=== PATIENT | male | born 1965 | race American Indian/Alaskan Native ===

== ENCOUNTER 2019-10-13 11:09 | Day surgery (SDC) | payer OTHER ==
[~2019-10-13 11:09] MED LIST: CELECOXIB 200 MG CAP PO NR; GABAPENTIN 300 MG CAP PO NR; LACTATED RINGERS 1,000 ML IV SCH; MAGNESIUM OXIDE 400 MG TAB PO SCH; MIDAZOLAM 2 MG/2 ML INJ IV NR; ceFAZolin/STERILE WATER 2 GM/20 ML SYRINGE IV NR
[2019-10-13] MEDS ORDERED: HYDROmorphone 1 MG/1 ML INJ IV PRN ×2 (11:43→15:06)
--- NOTE | 2019-10-13 11:44 | Anesthesia Day of Surgery ---
Anesthesia Day of Surgery - Day of Surgery Patient Examined: Yes Patient H&P Reviewed: Yes Patient is NPO: Yes
--- NOTE | 2019-10-13 11:44 | Anesthesia Consultation ---
Anesthesia Consult and Med Hx Date of service: 10/13/19 - Airway Anesthetic Teeth Evaluation: Good ROM Head & Neck: Adequate Mental/Hyoid Distance: Adequate Mallampati Class: Class II Intubation Access Assessment: Probably Good - Pulmonary Exam CTA: Yes - Cardiac Exam Cardiac Exam: RRR - Pre-Operative Health Status ASA Pre-Surgery Classification: ASA2 Proposed Anesthetic Plan: General - Pulmonary Hx Smoking: No Hx Respiratory Symptoms: No Hx Sleep Apnea: Yes (somtimes uses CPAP) - Cardiovascular System Hx Hypertension: Yes Hx Heart Attack/AMI: No Hx Percutaneous Transluminal Coronary Angioplasty (PTCA): No Hx Cardia Arrhythmia: No - Central Nervous System CVA: No - Gastrointestinal Hx Gastroesophageal Reflux Disease: Yes (mild) - Endocrine Hx Renal Disease: No Hx Liver Disease: No Hx Insulin Dependent Diabetes: No Hx Non-Insulin Dependent Diabetes: No Hx Thyroid Disease: No - Other Systems Hx Obesity: No - Additional Comments Anesthesia Medical History Comments: No hx anesthetic complications.
[2019-10-13] MEDS ORDERED: ONDANSETRON 4 MG/2 ML INJ ONE (12:57)
[2019-10-13] MEDS ORDERED: PHENYLEPHRINE/NS 1,000 MCG/10 ML SYRINGE (OR USE) IV ONE (12:57)
[2019-10-13] MEDS ORDERED: LIDOCAINE MPF (2%) 20 MG/1 ML VIAL 5 ML ONE (12:57)
[2019-10-13] MEDS ORDERED: fentaNYL 100 MCG/2 ML INJ ONE (12:58)
[2019-10-13] MEDS ORDERED: propofoL 200 MG/20 ML VIAL IV ONE (12:58)
[2019-10-13] MEDS ORDERED: ePHEDrine SULFATE 50 MG/1 ML INJ ONE (13:01)
[2019-10-13] MEDS ORDERED: SODIUM CHLORIDE 0.9% IRR 1,500 ML BOTTLE IR ONE (13:59)
--- NOTE | 2019-10-13 14:11 | Short Stay Summary ---
Short Stay Documentation Date of service: 10/06/19 - History H&P: obtained from office - Allergies and Medications Current Medications: Allergies No Known Allergies Allergy (Unverified 10/04/19 11:50) Home Medications Medication Instructions Recorded Confirmed Last Taken Type AtorvaSTATin 40 mg PO DAILY 10/04/19 10/04/19 10/12/19 History Flomax 0.4 mg PO DAILY 10/04/19 10/04/19 10/12/19 History Olmesartan-Hctz 40-25 mg Tab 40 mg PO DAILY 10/04/19 10/04/19 10/12/19 History Turmeric 1 cap PO DAILY 10/04/19 10/04/19 10/12/19 History Active Medications Cefazolin Sodium (Ancef/Sterile Water 2 Gm/20 Ml) 2 gm IV PREOP NR Stop: 10/13/19 23:59 Celecoxib (Celebrex) 200 mg PO PREOP NR Stop: 10/13/19 23:59 Last Admin: 10/13/19 12:15 Dose: 200 mg Documented by: Gabapentin (Gabapentin) 300 mg PO PREOP NR Stop: 10/13/19 23:59 Last Admin: 10/13/19 12:15 Dose: 300 mg Documented by: Hydromorphone HCl (Dilaudid) 0.5 mg IV Q10MIN PRN PRN Reason: Pain , Severe (7-10) Stop: 10/13/19 15:00 Lactated Ringer's (Lactated Ringers) 1,000 mls @ 100 mls/hr IV DIRECT LEANDRA Stop: 10/13/19 23:59 Last Admin: 10/13/19 12:15 Dose: 100 mls/hr Documented by: Magnesium Oxide (Mag-Ox) 400 mg PO PREOP LEANDRA Stop: 10/13/19 23:59 Last Admin: 10/13/19 12:15 Dose: 400 mg Documented by: Midazolam HCl (Versed) 2 mg IV PREOP NR Stop: 10/13/19 23:59 Last Admin: 10/13/19 12:20 Dose: 2 mg Documented by: - Brief post op/procedure progress note Date of procedure: 10/13/19 Pre-op diagnosis: rt hydrocele Post-op diagnosis: same Procedure: hydrocelectomy with madeline drain Anesthesia: GETA Surgeon: CHENG ORTEZ Pathology: list (sac) Specimen disposition: to lab Condition: stable - Hospital course Hospital course: ultram & norco on chart - Disposition Condition at discharge: Stable Disposition: DC-01 TO HOME OR SELFCARE Short Stay Discharge Plan Follow up with: GERMAN BOX MD [Primary Care Provider] - 7 Days
--- NOTE | 2019-10-13 14:23 | Operative Report ---
PREOPERATIVE DIAGNOSIS: Right hydrocele. POSTOPERATIVE DIAGNOSIS: Right hydrocele. PROCEDURE: Hydrocelectomy with Henderson. SURGEON: Demetrio Rangel MD ANESTHESIA: General. ESTIMATED BLOOD LOSS: Minimal. FLUIDS: Crystalloid. COMPLICATIONS: No complications. 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 Ultrasound revealed a hydrocele right side. Discussed options. The patient wants to proceed with surgical intervention. DESCRIPTION OF PROCEDURE: The patient was taken to the operative suite, placed in a supine position. After adequate general anesthesia, he was prepped and draped in a sterile fashion. A midline incision was made with the Bovie. Sharp dissection was taken to the tunica vaginalis. Left side was normal. Right side, obvious hydrocele. It was opened. Serosanguineous fluid was removed. Hydrocele sac was removed and sent for routine pathologic evaluation. 2-0 chromic running stitch was placed. Adequate hemostasis was achieved. Testicle was placed back in the scrotal sac. The dartos layer was then closed using 2-0 Vicryl in a running fashion. We incorporated the Henderson drain in the incision, 2-0 Vicryl interrupted suture on the skin. Fluffs and mesh pants were placed. The patient tolerated the procedure well and was taken to recovery room. He will go home on [facility] [facility] and follow up in the office. JOB# [id number] PIPPA/ROLY
--- NOTE | 2019-10-13 14:25 | Post Anesthesia Evaluation ---
- Post Anesthesia Evaluation Patient Participated: Yes Airway Patent: Yes Stable Respiratory Function: Yes Nausea/Vomiting: No Temp > 96.8F: Yes Pain Manageable: Yes Adequeate Hydration: Yes Anesthesia Complications: No
[2019-10-13] MEDS ORDERED: HYDROcodone/ACETAMINOPHEN 5-325 MG TAB PO PRN (14:49)
[2019-10-13] MEDS ORDERED: HYDROmorphone 1 MG/1 ML INJ ONE (15:00)
[2019-10-13 15:16] VITALS: BP 130/79
== END 2019-10-13 15:50 | disposition home or self-care (01) ==
LOC: OR 11:09
PROVIDERS: ATTEND Urology
DX: N43.2 Other hydrocele (principal); E78.00 Pure hypercholesterolemia, unspecified; I10 Essential (primary) hypertension; G47.30 Sleep apnea, unspecified; K21.9 Gastro-esophageal reflux disease without esophagitis; M19.90 Unspecified osteoarthritis, unspecified site; Z72.89 Other problems related to lifestyle; Z79.899 Other long term (current) drug therapy; Z98.890 Other specified postprocedural states
CPT/HCPCS: 36415; 55040; 84132; 88302; J0690; J1170; J2250; J2370; J2405; J2704; J3010; J7120